=== PATIENT | male | born 1995 | race Two or more races ===

== ENCOUNTER 2018-04-09 20:23 | Emergency (ER) | payer MEDICAID, OTHER ==
[~2018-04-09] VITALS: Ht 165.1 cm; Wt 63.5 kg
[~2018-04-09 20:23] MED LIST: NKM
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
[2018-04-09 20:30] VITALS: BP 128/80
--- NOTE | 2018-04-09 21:00 | NUR ---
ER Nurse Note: Pt with radiology; awaiting results. Pt is calm, cooperative. All orders completed per ERMD orders. Will continue to montior.
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
[2018-04-09] MEDS ORDERED: NORCO 5-325 TA1 EACH ORAL (22:00)
[2018-04-09] MEDS ORDERED: IBUPROFEN600 MG ORAL (22:00)
[2018-04-09 22:10] VITALS: BP 130/78
[2018-04-09 22:12] VITALS: BP 128/80
--- NOTE | 2018-04-09 22:12 | NUR ---
ER Nurse Note: Pt seen, treated, medically cleared for discharge by ERMD. All orders completed per ERMD orders. Discharge instructions and prescriptions given with repeat verbalization by pt. Instructed pt to follow up with primary care physican/ orthopedic physican within one week; and also get further testing to confirm dx. Pt a&ox4, VSS, no signs of distress. ID band removed; left with steady gait via own transportation.
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
== END 2018-04-09 22:12 | disposition home or self-care (01) ==
LOC: EDBD 20:23 → EMR 21:30
DX: S22.31XA Fracture of one rib, right side, initial encounter for closed fracture (principal); V43.62XA Car passenger injured in collision with other type car in traffic accident, initial encounter; Y92.410 Unspecified street and highway as the place of occurrence of the external cause
CPT/HCPCS: 99283